=== PATIENT | female | born 1995 | race Caucasian/White ===

== ENCOUNTER 2019-04-22 00:06 | Emergency (ER) | payer OTHER ==
[~2019-04-22] VITALS: Ht 160 cm; Wt 83.9 kg
[2019-04-22 00:10] VITALS: BP_SYST 96
--- NOTE | 2019-04-22 00:10 | NUR ---
Pt ambulatory to bed 2 for evaluation
[2019-04-22] MEDS ORDERED: PREDNISONE 20 MG TABLET PO ONE (00:30)
[2019-04-22] MEDS ORDERED: FAMOTIDINE 20 MG TABLET PO ONE (00:30)
[2019-04-22] MEDS ORDERED: DIPHENHYDRAMINE HCL 25 MG CAPSULE PO ONE (00:30)
--- NOTE | 2019-04-22 00:37 | NUR ---
BENADRYL 50 MG PO, PEPCID 20 MG PO AND PREDNISONE 40 MG PO GIVEN ORDERED.
--- NOTE | 2019-04-22 01:02 | NUR ---
ER-MD BACK AT BEDSIDE TO RE-EVALUATE AND DISCUSS PLAN OF CARE WITH PATIENT.
--- NOTE | 2019-04-22 01:27 | NUR ---
DISCHARGED STABLE AND IMPROVED. VERBAL AND WRITTEN INSTRUCTIONS GIVEN. VERBALIZED UNDERSTANDING.
[2019-04-22 01:42] VITALS: BP_SYST 120
== END 2019-04-22 01:42 | disposition home or self-care (01) ==
LOC: SED 00:06
DX: T78.1XXA Other adverse food reactions, not elsewhere classified, initial encounter (principal); L50.9 Urticaria, unspecified; X58.XXXA Exposure to other specified factors, initial encounter
CPT/HCPCS: 99284; J7512; Q0163